=== PATIENT | female | born 1960 | race Caucasian/White ===

== ENCOUNTER 2025-03-14 05:48 | Inpatient (IN) | payer MEDICARE, SELFPAY ==
[2025-03-09 09:02] LABS: Hematocrit 39.6 % (37.0-47.0); Hemoglobin 12.8 g/dL (12.0-16.0); Mean Corp Hgb Conc. 32.3 g/dL (33.0-37.0); Mean Corpuscular Volume 89.2 fL (81.0-99.0); Platelet Count 285 10^3/uL (130-400); Red Cell Dist. Width 14.1 % (11.5-14.5)
[2025-03-09 09:07] LABS: INR 0.97; PT 13.2 Sec (11.4-14.6)
[2025-03-09 09:08] LABS: APTT 27.2 Sec (23.4-35.0)
[2025-03-09 09:39] LABS: ALT (SGPT) 21 U/L (0-35); AST (SGOT) 25 U/L (14-36); Albumin 4.5 g/dl (3.5-5.0); Alkaline Phosphatase 86 U/L (38-126); Blood Urea Nitrogen 15 mg/dl (7-17); Calcium 9.0 mg/dl (8.4-10.2); Carbon Dioxide 30 mmol/L (22-30); Chloride 103 mmol/L (98-107); Glucose 106 mg/dl (70-99); Potassium 4.8 mmol/L (3.5-5.1); Sodium 141 mmol/L (135-145); Total Protein 7.2 g/dl (6.3-8.2); eGFR > 60.00
[2025-03-09 10:38] LABS: Glycohemoglobin (HgbA1c) 6.2 % (4.0-5.6)
[2025-03-09 14:02] VITALS: BMI 28.0
[2025-03-14] VITALS (18 sets, daily range): BP systolic 115–150; BP diastolic 65–96; BMI 28.0
[2025-03-14] MEDS: HEPARIN 5000 UNITS SC (06:41)
[2025-03-14] MEDS: TYLENOL 1000 MG PO (06:41)
[2025-03-14] MEDS: NORMOSOL-R/PLASMALYTE-A 1000 IV ×2 (06:42→17:26)
--- NOTE | 2025-03-14 12:39 | W.IMMPOSTOP ---
Surgical Immed Post Op Note
-
Primary Surgeon: Pierre Meléndez MD
Assisting Surgeon: ALEJANDRINA Jacobs and AI Brice
Pre-op Diagnosis: Recurrent rectal prolapse
Post-op Diagnosis: Same
Procedure Performed: Robotic ventral mesh rectopexy
Anesthesia Type: GET
Specimen / Cultures: None
Estimated Blood Loss: 15cc
Complications: None
Operative Findings: Full-thickness prolapse
Upsylon mesh repair
Normal flexible sigmoidoscopy
Patient's updated in the waiting room.
[2025-03-14] MEDS: DILAUDID 0.5 MG IV ×2 (13:52→18:57)
[2025-03-14] MEDS: DILAUDID 0.25 MG IV ×3 (14:16→16:20)
[2025-03-14] MEDS: ERYTHROMYCIN 0.5% OPHTHALMIC OINTMENT 1 APPLIC OPHTH ×2 (14:54→22:18)
[2025-03-14] MEDS: ATIVAN 1 MG PO ×2 (15:28→19:52)
[2025-03-14] MEDS: NEURONTIN 600 MG PO ×2 (15:44→22:19)
[2025-03-14] MEDS: TYLENOL 650 MG PO ×2 (15:45→19:52)
[2025-03-14] MEDS: TORADOL 15 MG IV ×2 (17:29→23:20)
--- NOTE | 2025-03-14 18:34 | PTCARENOTE ---
pt admitted from pacu AOx3. RRR. Lung sounds diminished b/l 2L via NC hypoactive bs x4. abd round tender, distended with 6 lap sites all well approximated with surgical adhesive. skin otherwise intact. +PP b/l no edema noted. CB in reach instructed
on use.
[2025-03-14] MEDS: LATUDA 80 MG PO (19:51)
[2025-03-14] MEDS: BENADRYL 25 MG PO (22:19)
[2025-03-15] MEDS: TYLENOL PO (00:52)
[2025-03-15 01:20] VITALS: BP 125/75
[2025-03-15] MEDS: DILAUDID 0.5 MG IV (01:21)
[2025-03-15 03:10] VITALS: BP 135/79
[2025-03-15] MEDS: ATIVAN 1 MG PO ×3 (03:52→20:50)
[2025-03-15] MEDS: NORMOSOL-R/PLASMALYTE-A 1000 IV ×2 (03:52→12:17)
[2025-03-15] MEDS: TYLENOL 650 MG PO ×5 (03:52→20:52)
[2025-03-15] MEDS: SYNTHROID 50 MCG PO (05:22)
[2025-03-15] MEDS: TORADOL 15 MG IV ×3 (05:23→17:58)
[2025-03-15 06:00] VITALS: BMI 28.3
[2025-03-15 07:45] VITALS: BP 107/63
[2025-03-15 07:57] LABS: Hematocrit 34.9 % (37.0-47.0); Hemoglobin 11.7 g/dL (12.0-16.0); Mean Corp Hgb Conc. 33.5 g/dL (33.0-37.0); Mean Corpuscular Volume 87.5 fL (81.0-99.0); Nucleated Red Blood Cells % 0 %; Platelet Count 280 10^3/uL (130-400); Red Cell Dist. Width 14.0 % (11.5-14.5)
[2025-03-15 08:23] LABS: Blood Urea Nitrogen 8 mg/dl (7-17); Calcium 8.6 mg/dl (8.4-10.2); Carbon Dioxide 26 mmol/L (22-30); Chloride 105 mmol/L (98-107); Estimated Creatinine Clearance 79 ml/min; Glucose 119 mg/dl (70-99); Potassium 4.6 mmol/L (3.5-5.1); Sodium 135 mmol/L (135-145); eGFR > 60.00
[2025-03-15] MEDS: NEURONTIN 600 MG PO ×3 (08:31→20:50)
[2025-03-15] MEDS: ROXICODONE 5 MG PO ×3 (08:32→20:50)
[2025-03-15] MEDS: LIPITOR 10 MG PO (08:32)
[2025-03-15] MEDS: ERYTHROMYCIN 0.5% OPHTHALMIC OINTMENT 1 APPLIC OPHTH ×2 (08:32→17:59)
--- NOTE | 2025-03-15 10:24 | CM ---
Reviewed the chart notes and spoke with the patient at the bedside. The patient resides with her spouse in a two story home with one step to enter. The patient reports no DME/VN/SNF in the past. The patient confirmed her pharmacy of choice is [facility]
[address] [place]. CM continues to be available to patient/family and is monitoring medical plan for needs at discharge.
Plan: Discharge plans will depend on the patient's progress. Patient currently with [facility].
[2025-03-15 11:30] VITALS: BP 127/52
--- NOTE | 2025-03-15 12:09 | W.PN.CRS1 ---
Today's Communication / Plan
-
low residue
DC Cee
Lovenox
Assessment/Plan
-
POD#1 Robotic ventral mesh rectopexy
wbc: 11.6, hemoglobin 11.4, creatinine 0.5
- Advance diet to low residue
- DC IV fluids when tolerating p.o. intake
- DC Cee
- Out of bed as tolerated
- Start Lovenox for DVT prophylaxis. Teds and SCDs in place
- Pain control: Tylenol and Toradol standing, Dilaudid and oxycodone as needed
- Dispo possibly as soon as tomorrow if tolerating diet and pain controlled
Subjective Data
Procedure
03/15/2025- Robotic ventral mesh rectopexy
Subjective Data
Date of Service: March 15, 2025
Patient states she has some pain but it has been controlled. She is tearful but due to being emotional. Denies nausea or vomiting. Tolerated clears.
Objective Data
-
Vital Signs
Temp Pulse Resp BP Pulse Ox
97.7 F 89 16 107/63 96
03/15/25 07:45 03/15/25 07:45 03/15/25 07:45 03/15/25 07:45 03/15/25 07:45
Intake & Output
03/14/25 03/15/25 03/16/25
06:59 06:59 06:59
Intake Total 1100 / 1100
Output Total 800 / 800
Balance 300 / 300
Intake:
Oral fluids 700 / 700
IV fluids (Total) 400 / 400
Normosal 400 / 400
Output:
Urine, Cee 800 / 800
Lab Results
03/15/25 07:35
03/15/25 07:35
Physical Exam
-
General: No Acute Distress and AOx3
Abdomen: Soft, Distended (Mild) and Non Tender
Skin: Warm and Dry
Incision: Clear, Dry, Intact
[2025-03-15] MEDS: ERYTHROMYCIN 0.5% OPHTHALMIC OINTMENT OPHTH ×2 (12:26→23:13)
[2025-03-15 15:05] VITALS: BP 128/73
[2025-03-15] MEDS: LATUDA 80 MG PO (17:58)
[2025-03-15] MEDS: LOVENOX 40 MG SC (17:58)
[2025-03-15] MEDS: NORMOSOL-R/PLASMALYTE-A IV (18:08)
[2025-03-15] MEDS: BENADRYL 25 MG PO (20:50)
[2025-03-15 23:00] VITALS: BP 98/51
[2025-03-16] MEDS: TORADOL 15 MG IV ×3 (00:04→13:03)
[2025-03-16] MEDS: TYLENOL 650 MG PO ×4 (00:05→13:02)
[2025-03-16 03:00] VITALS: BP 114/58
[2025-03-16] MEDS: TYLENOL PO (04:08)
[2025-03-16] MEDS: SYNTHROID 50 MCG PO (05:31)
[2025-03-16 06:00] VITALS: BMI 28.9
[2025-03-16 07:40] VITALS: BP 118/68
[2025-03-16] MEDS: ERYTHROMYCIN 0.5% OPHTHALMIC OINTMENT OPHTH (09:42)
[2025-03-16] MEDS: NEURONTIN 600 MG PO (09:43)
[2025-03-16] MEDS: LIPITOR 10 MG PO (09:43)
[2025-03-16] MEDS: ROXICODONE 5 MG PO (09:44)
--- NOTE | 2025-03-16 10:02 | W.PN.CRS1 ---
Today's Communication / Plan
-
discharge
Assessment/Plan
-
POD#2 Robotic ventral mesh rectopexy
no labs
- Continue low residue
- Voiding post foely removal
- Out of bed as tolerated
- Start Lovenox for DVT prophylaxis. Teds and SCDs in place
- Pain control: Tylenol and Toradol standing, Dilaudid and oxycodone as needed
- Dispo today. Instructions discussed with patient including medications, activity levels, and follow up. All questions addressed.
Subjective Data
Procedure
03/15/2025- Robotic ventral mesh rectopexy
Subjective Data
Date of Service: March 16, 2025
Patient states she is feeling well today. She has no nausea or vomiting. She is tolerating a diet. She feels like she can go home. She currently has no complaints.
Objective Data
-
Vital Signs
Temp Pulse Resp BP Pulse Ox
98.5 F 77 16 114/58 94
03/15/25 23:00 03/16/25 03:00 03/16/25 03:00 03/16/25 03:00 03/15/25 23:00
Intake & Output
03/15/25 03/16/25 03/17/25
06:59 06:59 06:59
Intake Total 1100 / 1100 720 / 720 120 / 120
Output Total 800 / 800 1140 / 1140
Balance 300 / 300 -420 / -420 120 / 120
Intake:
Oral fluids 700 / 700 720 / 720 120 / 120
IV fluids (Total) 400 / 400
Normosal 400 / 400
Output:
Urine, Cee 800 / 800 1140 / 1140
Other:
Number of approximated SMALL 1 1
amounts of urine
Number of approximated MODERATE 1
amounts of urine
Number of approximated LARGE 1
amounts of urine
How many times incontinent 1
MODERATE amount urine
Lab Results
03/15/25 07:35
03/15/25 07:35
Physical Exam
-
General: No Acute Distress and AOx3
Abdomen: Soft, Non Distended and Non Tender
Skin: Warm and Dry
Incision: Clear, Dry, Intact
--- NOTE | 2025-03-16 11:44 | CM ---
Reviewed the chart notes and spoke with the patient at the bedside. IMM reviewed. Patient's spouse to provide transportation home. CM continues to be available to patient/family and is monitoring medical plan for needs at discharge.
Plan: Discharge to home when medically stable. No needs anticipated.
[2025-03-16 13:00] VITALS: BP 149/91
== END 2025-03-16 13:56 | disposition home or self-care (01) | DRG 330 ==
LOC: 2 SOUTH 05:48
PROVIDERS: ADMITTING PHYSICIAN Surgery; FAMILY PHYSICIAN Physician Assistant Medical
PROC: 0DUP4JZ Supplement Rectum with Synthetic Substitute, Percutaneous Endoscopic Approach (ICD-10-PCS; 2025-03-14)
PROC: 0DJD8ZZ Inspection of Lower Intestinal Tract, Via Natural or Artificial Opening Endoscopic (ICD-10-PCS; 2025-03-14)
PROC: 0DSP4ZZ Reposition Rectum, Percutaneous Endoscopic Approach (ICD-10-PCS; 2025-03-14)
PROC: 8E0W4CZ Robotic Assisted Procedure of Trunk Region, Percutaneous Endoscopic Approach (ICD-10-PCS; 2025-03-14)
DX: K62.3 Rectal prolapse (principal); Q43.8 Other specified congenital malformations of intestine; K66.0 Peritoneal adhesions (postprocedural) (postinfection); F41.9 Anxiety disorder, unspecified; E07.9 Disorder of thyroid, unspecified; G89.29 Other chronic pain; M54.9 Dorsalgia, unspecified; Z91.048 Other nonmedicinal substance allergy status; Z90.49 Acquired absence of other specified parts of digestive tract; Z98.1 Arthrodesis status; Z79.890 Hormone replacement therapy; Z82.49 Family history of ischemic heart disease and other diseases of the circulatory system; Z81.8 Family history of other mental and behavioral disorders
CPT/HCPCS: 36415; 80048; 80053; 83036; 85025; 85027; 85610; 85730; 86850; 86900; 86901; 93005; C1763; J1335

== ENCOUNTER → 2025-03-29 13:59 | Outpatient (REF) | payer MEDICARE, SELFPAY | LOC: RAD 13:59 | PROVIDERS: ATTENDING PHYSICIAN Surgery; FAMILY PHYSICIAN Physician Assistant Medical | DX: Z48.89 Encounter for other specified surgical aftercare (principal) | CPT/HCPCS: 74019 ==